=== PATIENT | female | born 1960 | race Caucasian/White ===

== ENCOUNTER 2019-05-03 06:57 | Observation (INO) | payer OTHER ==
[~2019-05-03] VITALS: Ht 157.5 cm; Wt 70.3 kg
[2019-05-03 07:08] VITALS: Ht 157.5 cm; Wt 70.3 kg
[2019-05-03] MEDS ORDERED: NOR10 PO (07:31)
[2019-05-03] MEDS ORDERED: LIPITOR40 MG PO (07:31)
[2019-05-03] MEDS ORDERED: REQUIP3 MG PO (07:32)
[2019-05-03] MEDS ORDERED: SPIRIVA RE2.5 MCG/Ac IH (07:33)
[2019-05-03] MEDS ORDERED: VENTOLIN H0.09 MG/A1 IH (07:34)
[2019-05-03] MEDS ORDERED: ZES10 PO (07:35)
[2019-05-03] MEDS ORDERED: LACTULOSE10 GM/153 PO (07:35)
[2019-05-03] MEDS ORDERED: CARAFATE1 GM PO (07:36)
[2019-05-03] MEDS ORDERED: ACID REDUCER20 MG PO (07:36)
[2019-05-03] MEDS ORDERED: ALLERGY RELIE15.8 ML NS (07:37)
[2019-05-03] MEDS ORDERED: IPRATROPIUM BROM3 M2 HHN (07:38)
[2019-05-03] MEDS ORDERED: IRON65 MG PO (07:39)
[2019-05-03] MEDS ORDERED: DULOXETINE HYDR60 MG PO (07:39)
[2019-05-03] MEDS ORDERED: ALPRAZOLAM XR1 MG PO (07:39)
[2019-05-03] MEDS ORDERED: DILAUDID4 MG PO (07:40)
[2019-05-03] MEDS ORDERED: VOLTAREN100 GM TOP (07:41)
[2019-05-03 08:19] LABS: CALCIUM 8.6 mg/dL (8.5-10.1); CARBON DIOXIDE 23.6 mmol/L (21-32); CHLORIDE SERUM 104 mmol/L (98-107); GFR1 > 60 mL/min; GLUCOSE SERUM 150 mg/dL (74-106); POTASSIUM SERUM 3.4 mmol/L (3.5-5.1); SODIUM SERUM 140 mmol/L (136-145)
[2019-05-03 08:25] LABS: FREE T4 1.33 ng/dL (0.76-1.46); FREE THYROXINE INDEX 4.8 ug/dL (1.4-4.5); T4(THYROXINE) 12.4 ug/dL (4.7-13.3)
[2019-05-03 08:29] LABS: ALBUMIN 3.8 g/dL (3.4-5.0); ALKALINE PHOSPHATASE 133 U/L (46-116); ALT/SGPT 49 U/L (14-59); AST/SGOT 21 U/L (15-37); BILIRUBIN TOTAL 0.4 mg/dL (0.20-1.00); C REACTIVE PROTEIN 0.2 mg/dL (<=0.9); TOTAL PROTEIN, SERUM 7.2 g/dL (6.4-8.2)
[2019-05-03 08:31] LABS: BASOPHIL % 0.7 % (0-2); RED CELL DISTRIBUTION WIDTH 13.3 % (11.5-14.5)
[2019-05-03 08:32] LABS: PLATELET COUNT 428 x10^3mcL (130-400)
[2019-05-03 08:35] LABS: T3 TOTAL 1.86 ng/mL
[2019-05-03 08:42] LABS: microscopic required? YES; urine erythrocyte NEGATIVE (NEGATIVE)
[2019-05-03 08:49] LABS: CK-MB 0.6 ng/mL (0-3.6)
[2019-05-03 12:10] LABS: ERYTHROCYTE SED RATE 24 mm/hr (0-30)
[2019-05-03 13:56] VITALS: BP 113/74
[2019-05-03 14:11] VITALS: BP 113/74
[2019-05-03 22:35] VITALS: BP 137/85
[2019-05-04 06:09] VITALS: BP 105/67
[2019-05-04 08:08] VITALS: BP 115/79
[2019-05-04 11:57] VITALS: BP 97/67
[2019-05-04 13:37] VITALS: BP 97/67
== END 2019-05-04 13:29 | disposition home or self-care (01) ==
LOC: ED 06:57 → MU 11:45
PROVIDERS: Specialist; ADMIT Internal Medicine Pulmonary Disease
DX: R13.10 Dysphagia, unspecified (principal); K21.9 Gastro-esophageal reflux disease without esophagitis; K44.9 Diaphragmatic hernia without obstruction or gangrene; D64.9 Anemia, unspecified
CPT/HCPCS: 36600; 43235; 84439; 90658; C9113; G0378; J0696; J1170; J1200; J1610; J1956; J2250; J2270; J2310; J3010; J3490; J7030; J7060; J7613; J7644; Q0092